=== PATIENT | male | born 1940 ===

== ENCOUNTER 2017-03-19 11:15 | Day surgery (SDC) | payer OTHER, MEDICARE ==
[2017-03-18 14:44] VITALS: BMI 33.2
[2017-03-19] MEDS ORDERED: Lidocaine 2% Inj (20ml) ONE ×2 (11:29→14:20)
[2017-03-19] MEDS ORDERED: Phenylephrine 10 mg/ml Inj ONE (11:30)
[2017-03-19] MEDS ORDERED: Midazolam 2 MG/2 ML VIAL ONE ×2 (11:30→12:30)
[2017-03-19] MEDS ORDERED: Iodixanol 320 MG/ML 100 ML BOTTLE IV ONE (11:31)
[2017-03-19] MEDS ORDERED: Iodixanol 320 MG/ML 200 ML BOTTLE IV ONE (11:31)
[2017-03-19] MEDS ORDERED: Nitroglycerin 50mg in D5W 50 MG/250 ML BOTTLE IV ONE (11:31)
[2017-03-19] MEDS ORDERED: Iohexol 350mgl/ml 50 ML ONE (11:31)
[2017-03-19] MEDS ORDERED: Sodium Chloride 0.45% 1,000 ML IV SCH (14:30)
[2017-03-19 15:49] VITALS: TEMP 97.9
[2017-03-19 15:51] VITALS: RESP 16
[2017-03-19 16:33] VITALS: BP 148/80; PULSE 62; O2SAT 96
--- NOTE | 2017-03-24 08:10 | CARDCATH ---
PROCEDURE DATE: PROCEDURES: 1. Left coronary angiogram. 2. Left circumflex coronary artery balloon angioplasty and drug-eluting stent placement. 3. Radiological supervision and radiological interpretation of the coronary angiogram and stent placement. CLINICAL INDICATIONS: 1. Chest pain. 2. Non-ST elevation myocardial infarction. 3. Coronary artery disease. 4. Hypertension. 5. Hyperlipidemia. REFERRING PHYSICIAN: Dr. Eloy Melendez. PERFORMING PHYSICIAN: Dr. Sigifredo Alonzo. PROCEDURE: After informed consent, the patient was prepped and draped in usual sterile fashion. A 2% lidocaine was given in the right groin for local anesthesia. Using micropuncture technique, 6-[place] sheath was introduced into right common femoral artery. The patient was preloaded with aspirin, Plavix, and IV heparin. ACT was maintained above 250. XBLAD 3.5, 6-[place] guide catheter was engaged into left main coronary artery. Contrast injected and left coronary angiogram was performed. Left circumflex has 2 sequential 99% stenotic lesions in the distal region. There was a RADHA-2 flow noted beyond the lesions. The lesion were predilated. Left circumflex coronary artery was threaded with 0.014 Terumo coronary wire. The lesion was dilated using 2.5 x 15 compliant balloon. Both the lesions were stented with one long stent that is 3.5 x 38 Xience Alpine drug-eluting stent. Post stent angiography confirmed excellent final angiographic results with brisk RADHA flow. The patient tolerated the procedure well. Postprocedure, the sheath was removed. Pre-close was deployed with good hemostasis. CONCLUSION: 1. Successful left circumflex coronary artery intervention with regulating stent. 2. Recommend Plavix for one year. Recommend aspirin, statin and beta-blockers for life. Sigifredo Alonzo MD
== END 2017-03-19 20:00 | disposition short-term general hospital (02) ==
LOC: CATH 11:15 → CCU 14:44 → CATH 20:00
PROVIDERS: ATTEND Internal Medicine Cardiovascular Disease
DX: I21.4 Non-ST elevation (NSTEMI) myocardial infarction (principal); I25.10 Atherosclerotic heart disease of native coronary artery without angina pectoris; I10 Essential (primary) hypertension; E78.5 Hyperlipidemia, unspecified